=== PATIENT | female | born 1980 | race Caucasian/White ===

== ENCOUNTER 2016-09-30 14:46 | Emergency (ER) | payer SELFPAY ==
[~2016-09-30] VITALS: Ht 157.4 cm; Wt 54.4 kg
[~2016-09-30 14:46] MED LIST: BACTRIM DS 8001 TA1 PO; KEFLEX500 MG PO; MOTRIN800 MG PO; NAPROSYN500 MG PO; NKHM; ROBAXIN750 MG PO; VICODIN 5/500 505 MG PO
[2016-09-30] MEDS ORDERED: AMOXICILLIN500 M2 PO (15:56)
[2016-09-30] MEDS ORDERED: NAPROSYN500 MG PO (15:56)
[2016-09-30] MEDS ORDERED: PREDNISONE20 M1 PO (15:56)
== END 2016-09-30 16:04 | disposition home or self-care (01) ==
LOC: ED 14:46
DX: J20.9 Acute bronchitis, unspecified (principal); R09.1 Pleurisy; F17.200 Nicotine dependence, unspecified, uncomplicated

== ENCOUNTER 2018-11-21 20:12 | Emergency (ER) | payer OTHER ==
[~2018-11-21] VITALS: Ht 157.4 cm; Wt 63.5 kg
[~2018-11-21 20:12] MED LIST changes: +AMOXICILLIN500 M2 PO; +PREDNISONE20 M1 PO
[2018-11-21] MEDS ORDERED: IBUPROFEN600 MG PO (20:31)
[2018-11-29] MEDS ORDERED: AMOXICILLIN500 M3 PO (12:24)
[2018-11-29] MEDS ORDERED: CLEOCIN HCL150 MG PO (12:24)
== END 2018-11-21 20:45 | disposition home or self-care (01) ==
LOC: ED 20:12
DX: K02.9 Dental caries, unspecified (principal); Z79.2 Long term (current) use of antibiotics; Z79.899 Other long term (current) drug therapy

== ENCOUNTER 2019-01-04 02:32 | Emergency (ER) | payer OTHER ==
[~2019-01-04] VITALS: Ht 170.1 cm; Wt 54.4 kg
--- NOTE | ~2019-01-04 | EKG ---
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
[~2019-01-04 02:32] MED LIST changes: +AMOXICILLIN500 M3 PO; +CLEOCIN HCL150 MG PO; +IBUPROFEN600 MG PO
[2019-01-04 02:49] LABS: BASO % 0.2 % (0.0-1.0); EOS # 0.1 10*3/uL (0.0-0.4); EOS % 0.4 % (1.0-4.0); HEMATOCRIT 35.5 % (37.0-47.0); HEMOGLOBIN 12.9 g/dl (12.0-16.0); LYMPH # 2.3 10*3/uL (1.3-4.4); LYMPH % 17.2 % (27.0-41.0); MEAN CELL VOLUME 100.3 fl (81.0-99.0); MEAN CORPUSCULAR HGB 36.4 pg (27.0-31.0); MEAN CORPUSCULAR HGB CONC 36.3 g/dl (33.0-37.0); MEAN PLATELET VOLUME 10.9 fl (9.6-12.3); MONO # 0.8 10*3/uL (0.1-1.0); MONO % 5.9 % (3.0-9.0); NEUT # 10.1 10*3/uL (2.3-7.9); NEUT % 75.9 % (47.0-73.0); PLATELET COUNT AUTOMATED 182 10*3/uL (130-400); RED BLOOD COUNT 3.54 10*6/uL (4.10-5.10); RED CELL DISTRI WIDTH 12.7 % (0-14.5); WHITE BLOOD COUNT 13.3 10*3/uL (4.8-10.8)
[2019-01-04 03:06] LABS: ALBUMIN 3.8 gm/dl (3.1-4.5); ALKALINE PHOSPHATASE 69 U/L (45-117); BUN 9 mg/dl (7-24); CHLORIDE 98 mmol/L (98-107); CREATININE 0.75 mg/dL (0.55-1.02); POTASSIUM 2.7 mmol/L (3.5-5.1); SGOT/AST 34 IU/L (3-35); SGPT/ALT 47 U/L (12-78); SODIUM 133 mmol/L (136-145); TOTAL PROTEIN 7.8 gm/dL (6.4-8.2)
[2019-01-04 03:07] LABS: TROPONIN I < 0.015 ng/ml (<0.045)
[2019-01-04 03:38] LABS: URINE AMPHETAMINES < 1000 (1000ng/ml); URINE BARBITURATES < 200 (200ng/ml); URINE BENZODIAZEPINES < 200 (200ng/ml); URINE CANNABINOIDS (THC) < 50 (50ng/ml); URINE COCAINE < 300 (300ng/ml); URINE METHADONE < 300 (300ng/ml); URINE OPIATES < 300 (300ng/ml); URINE PHENCYCLIDINE < 25 (25ng/ml)
[2019-01-04] MEDS ORDERED: K-TAB20 MEQ PO (04:08)
== END 2019-01-04 04:23 | disposition left against medical advice (07) ==
LOC: ED 02:32
PROVIDERS: Emergency Medicine
DX: R07.9 Chest pain, unspecified (principal); R55 Syncope and collapse; E87.6 Hypokalemia

== ENCOUNTER → 2019-02-12 | Outpatient (CLI) | payer OTHER ==
[~2019-02-12] MED LIST changes: +ALDACTONE25 M1 PO; +FUROSEMIDE20 M1 PO; +K-TAB20 MEQ PO; +LISINOPRIL2.5 MG PO; +METOPROLOL SUCC50 M1 PO
[2019-02-12 12:17] LABS: BUN 22 mg/dl (7-24); CHLORIDE 107 mmol/L (98-107); CREATININE 1.19 mg/dL (0.55-1.02); POTASSIUM 4.4 mmol/L (3.5-5.1); SODIUM 136 mmol/L (136-145)
== END | disposition home or self-care (01) ==
LOC: LAB 11:20
PROVIDERS: Internal Medicine Cardiovascular Disease
DX: I42.8 Other cardiomyopathies (principal)

== ENCOUNTER 2019-03-07 23:41 | Inpatient (IN) | payer SELFPAY ==
[~2019-03-07] VITALS: Ht 157.4 cm; Wt 64.2 kg
--- NOTE | ~2019-03-07 | EKG ---
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
--- NOTE | ~2019-03-07 | EKG ---
[place], [place] ELECTROCARDIOGRAM REPORT NAME: TUSHAR ORLANDO UNIT #: [id number] ROOM: 508 DOCTOR: ANGELITO DRAFT REPORT BIRTHDATE: [birth year] [facility] Test Date: 2019-03-08 Test Time: 02:32:22 Pat Name: TUSHAR ORLANDO Department: Room: 508 Gender: F Resident Advisor: Kirstin Ramesh : 1980 Requested By: TAMIKA PÉREZ Order Number: [id number] Reading MD: Shima Rodney Measurements Intervals [place] Rate: 90 P: 75 MT: 185 QRS: 14 QRSD: 101 T: -15 QT: 484 QTc: 593 Interpretive Statements Sinus rhythm Low voltage, precordial leads Prolonged QT interval Baseline wander in lead(s) V1 Compared to ECG 01/04/2019 02:45:34 Low QRS voltage now present Prolonged QT interval now present T-wave abnormality no longer present Electronically Signed On 03-08-2019 12:53:19 PDT by Shima Rodney CM:EKGRPT:ELECTROCARDIOGRAM REPORT [id number] TAMIKA HOUSE DRAFT REPORT TAMIKA PÉREZ DO
--- NOTE | ~2019-03-07 | EKG ---
[place], [place] ELECTROCARDIOGRAM REPORT NAME: TUSHAR ORLANDO UNIT #: [id number] ROOM: 508 DOCTOR: ANGELITO DRAFT REPORT BIRTHDATE: [birth year] [facility] Test Date: 2019-03-07 Test Time: 23:46:13 Pat Name: TUSHAR ORLANDO Department: Room: 508 Gender: F Educational Technologist: : 1980 Requested By: TAMIKA PÉREZ Order Number: [id number] Reading MD: Shima Rodney Measurements Intervals [place] Rate: 97 P: 64 [place]: 178 QRS: 6 QRSD: 103 T: 14 QT: 389 QTc: 494 Interpretive Statements Sinus rhythm Probable left ventricular hypertrophy Borderline prolonged QT interval Compared to ECG 01/04/2019 02:45:34 T-wave abnormality no longer present Electronically Signed On 03-08-2019 12:53:05 PDT by Shima Rodney CM:EKGRPT:ELECTROCARDIOGRAM REPORT [id number] TAMIKA HOUSE DRAFT REPORT TAMIKA PÉREZ DO
--- NOTE | ~2019-03-07 | CON ---
[place], [place] REPORT OF CONSULTATION NAME: TUSHAR ORLANDO [facility] #: [id number] UNIT #: [id number] ROOM: 508 DOCTOR: DAVIDA VELASQUEZ MD BIRTHDATE: [birth year] DOS: 03/08/2019 CARDIOLOGY CONSULTATION REASON FOR VISIT: Chest pain. HISTORY OF PRESENT ILLNESS: The patient is a 38-year-old patient with history of ICD implant, mitral valve prolapse tenderness with "chest pain." The patient had a left-sided chest pain while she is riding in a [id number] with her fiance. This pain was midsternal, has a left chest, sharp, constant pain without any radiation, no associated nausea or diaphoresis. She was a presented to Emergency Room and she was given sublingual nitro with minimal relief. Apparently, the patient had a cardiac catheterization about a year ago at [facility] and was told it was normal. An ICD was implanted last 06/2018 at [facility]. She denies any shocks from ICD. No palpitation, dizziness, no syncope, no nausea or vomiting. No fever and chills. No cough or hemoptysis. No bladder or bowel symptoms. Cardiology was consulted because of her atypical chest pain. REVIEW OF SYSTEMS: Review of 10 systems negative except as mentioned above. PAST MEDICAL HISTORY: 1. History of ICD. 2. History of mitral valve prolapse. PAST SURGICAL HISTORY: 1. History of ICD implant on 06/2018. 2. History of neck surgery. SOCIAL HISTORY: The patient does smoke, but quit using drugs about 5 years ago. FAMILY HISTORY: Mother has coronary artery disease. Father unknown history. ALLERGIES: No known drug allergies. HOME MEDICATIONS: Reviewed. PHYSICAL EXAMINATION: VITAL SIGNS: Blood pressure 102/60, pulse 98, respiratory rate 18, weight 61.1 kilos. BMI 25.9. GENERAL: Alert, comfortable, in no acute distress. HEENT: Pupils are round and equal. No jaundice. Tongue was moist. Pharynx negative. NECK: Supple, no distended neck veins, no carotid bruit. CHEST: Symmetrical, nontender. ICD site is unremarkable. LUNGS: Clear to auscultation bilaterally. HEART: Regular rhythm, no S3, no palpable thrills. ABDOMEN: Bowel sounds normal, nontender. EXTREMITIES: Showed no edema. Distal pulses palpable. [place], [place] REPORT OF CONSULTATION NAME: TUSHAR ORLANDO UNIT #: [id number] ROOM: 508 DOCTOR: EVA RESENDIZ,DAVIDA BIRTHDATE: [birth year] SKIN: Warm and dry. No cyanosis, no clubbing. RECTAL: Deferred. GENITOURINARY: Deferred. NEUROLOGIC: The patient is alert with no focal neurologic deficit. DIAGNOSTIC TESTS: Her EKG and labs reviewed. CBC, chemistry unremarkable except potassium 3.1. Her cardiac troponins are negative. IMPRESSION: 1. Chest pain, atypical, external factor ruled out. The patient apparently had a cardiac catheterization last year at [facility], which was reportedly normal. Reports not available. 2. History of ICD implant for cardiomyopathy. 3. Mild hypokalemia. 4. Tobacco and alcohol use. RECOMMENDATIONS: 1. Continue current cardiac medications including metoprolol, lisinopril, Lasix and Aldactone. 2. Blood pressure and heart rates are stable. 3. Reset modification was discussed. 4. The patient can be discharged from the cardiac standpoint. 5. She will follow with her corporate analyst, Dr. Alberto and also her inhalation therapy aide. The above treatment was discussed with the patient and her fiance at bedside. All questions were answered. DAVIDA VELASQUEZ MD CM:CONSTR:REPORT OF CONSULTATION 32 03/09/19 0244 interface
[2019-03-07 23:41] VITALS: BP 107/66
[~2019-03-07 23:41] MED LIST changes: -ALDACTONE25 M1 PO; -FUROSEMIDE20 M1 PO; -LISINOPRIL2.5 MG PO; -METOPROLOL SUCC50 M1 PO
[2019-03-08] VITALS (8 sets, daily range): BP systolic 87–118; BP diastolic 48–62
--- NOTE | 2019-03-08 00:35 | NUR ---
MULTIPLE ATTEMPTS AT IV ACCESS UNSUCCESSFUL BY 3 RNS AND CHEMICAL ECONOMIST
[2019-03-08 01:00] LABS: ACT PARTIAL THROMBO TIME 29.2 SECONDS (20.0-32.1); INTERNATIONAL NORM RATIO 0.9 (2.0-3.5)
[2019-03-08 01:06] LABS: ALKALINE PHOSPHATASE 80 U/L (45-117); BASO % 0.4 % (0.0-1.0); BUN 10 mg/dl (7-24); CHLORIDE 104 mmol/L (98-107); CREATININE 0.79 mg/dL (0.55-1.02); EOS # 0.1 10*3/uL (0.0-0.4); HEMATOCRIT 39.9 % (37.0-47.0); HEMOGLOBIN 13.7 g/dl (12.0-16.0); LYMPH # 3.2 10*3/uL (1.3-4.4); LYMPH % 32.8 % (27.0-41.0); MEAN CELL VOLUME 98.3 fl (81.0-99.0); MEAN CORPUSCULAR HGB 33.7 pg (27.0-31.0); MEAN CORPUSCULAR HGB CONC 34.3 g/dl (33.0-37.0); MEAN PLATELET VOLUME 10.6 fl (9.6-12.3); MONO # 0.6 10*3/uL (0.1-1.0); NEUT # 5.7 10*3/uL (2.3-7.9); NEUT % 59.6 % (47.0-73.0); PLATELET COUNT AUTOMATED 202 10*3/uL (130-400); POTASSIUM 3.1 mmol/L (3.5-5.1); RED BLOOD COUNT 4.06 10*6/uL (4.10-5.10); SGOT/AST 33 IU/L (3-35); SGPT/ALT 50 U/L (12-78); SODIUM 137 mmol/L (136-145); WHITE BLOOD COUNT 9.6 10*3/uL (4.8-10.8)
[2019-03-08 01:07] LABS: TROPONIN I < 0.015 ng/ml (<0.045)
--- NOTE | 2019-03-08 01:15 | NUR ---
PATIENT UP TO BEDSIDE COMMODE X 1 ASSIST
[2019-03-08 01:36] LABS: URINE AMPHETAMINES < 1000 (1000ng/ml); URINE BARBITURATES < 200 (200ng/ml); URINE BENZODIAZEPINES < 200 (200ng/ml); URINE CANNABINOIDS (THC) < 50 (50ng/ml); URINE COCAINE < 300 (300ng/ml); URINE METHADONE < 300 (300ng/ml); URINE OPIATES < 300 (300ng/ml)
[2019-03-08 01:37] LABS: URINE PHENCYCLIDINE < 25 (25ng/ml)
--- NOTE | 2019-03-08 04:10 | NUR ---
A 38, admitted to , under the services of AMOL Dennison DO with a diagnosis of ALCOHOL INTOXICATION, CHES T PAIN. Chief complaint is CHEST PAIN. Patient arrived via bed from ER. Monitor applied. Initial assessment completed. Vital signs taken and recorded. AMOL DENNISON DO notified of admission to the unit. Orders received. See assessment for past medical history, medications and allergies. Patient and/or family oriented to unit. [facility] visitation policy reviewed. Clothing/patient valuable form completed. DARIANA GRACE
[2019-03-08] MEDS ORDERED: LISINOPRIL2.5 MG PO (04:54)
[2019-03-08] MEDS ORDERED: ALDACTONE25 M1 PO (04:55)
[2019-03-08] MEDS ORDERED: FUROSEMIDE20 M1 PO (04:55)
[2019-03-08] MEDS ORDERED: METOPROLOL SUCC50 M1 PO (05:04)
--- NOTE | 2019-03-08 06:50 | NUR ---
DR. FRANCIS PAGED AT THIS TIME
--- NOTE | 2019-03-08 08:04 | NUR ---
REP FROM [facility] RETURNED CALL. PATIENT HAS ICD. UNABLE TO BE INTEROGATED. WILL FOLLOW UP WITH .
--- NOTE | 2019-03-08 08:09 | NUR ---
SPOKE WITH DR MEDINA ABOUT RESTARTING PT'S HOME MEDICATIONS AND [employer] NOT BEING ABLE TO INTEROGTE PACER BECAUSE SHE HAS AN ICD.
--- NOTE | 2019-03-08 12:24 | NUR ---
DR MEDINA CLLED FOR BP 87/48. PATIENT ASYMPTOMATIC AT THIS TIME. AWAITING ORDERS.
--- NOTE | 2019-03-08 14:45 | NUR ---
DR BEAN IN TO SEE PATIENT. OK TO BE DISCHARGED FROM HIS STANDPOINT.
--- NOTE | 2019-03-08 15:33 | NUR ---
Discharge instructions reviewed with patient/family. Patient receptive and verbalizes understanding. Follow-up care arranged. Written instructions given to patient/family. PATIENT DISCHARGED HOME WITH BOYFRIEND. RAY SHARIF
== END 2019-03-08 15:35 | disposition home or self-care (01) | DRG 206 ==
LOC: ED 23:41 → EDHOLD 03-08 02:37 → 5E 03-08 02:57
PROVIDERS: Emergency Medicine; Nurse Practitioner; ADMIT Internal Medicine
DX: M94.0 Chondrocostal junction syndrome [Tietze] (principal); I42.9 Cardiomyopathy, unspecified; K21.9 Gastro-esophageal reflux disease without esophagitis; F41.9 Anxiety disorder, unspecified; F10.129 Alcohol abuse with intoxication, unspecified; E87.6 Hypokalemia; F17.210 Nicotine dependence, cigarettes, uncomplicated; E83.51 Hypocalcemia; I34.1 Nonrheumatic mitral (valve) prolapse; Z95.810 Presence of automatic (implantable) cardiac defibrillator; Z71.6 Tobacco abuse counseling; Z82.49 Family history of ischemic heart disease and other diseases of the circulatory system

== ENCOUNTER → 2022-01-01 | Outpatient (CLI) | payer OTHER ==
[~2022-01-01] MED LIST changes: +ALDACTONE25 M1 PO; +FUROSEMIDE20 M1 PO; +LISINOPRIL2.5 MG PO; +METOPROLOL SUCC50 M1 PO
[2022-01-01 09:44] LABS: BUN 12 mg/dl (7-24); CHLORIDE 103 mmol/L (98-107); CREATININE 0.89 mg/dL (0.55-1.02); POTASSIUM 3.5 mmol/L (3.5-5.1); SODIUM 136 mmol/L (136-145)
== END | disposition home or self-care (01) ==
LOC: LAB 08:55
PROVIDERS: ATTEND Internal Medicine Cardiovascular Disease
DX: I42.8 Other cardiomyopathies (principal)

== ENCOUNTER 2022-03-22 23:53 | Observation (INO) | payer OTHER ==
[~2022-03-22] VITALS: Ht 160 cm; Wt 72.3 kg
[2022-03-23] VITALS (11 sets, daily range): BP systolic 93–127; BP diastolic 46–69
[2022-03-23 00:33] LABS: BILIRUBIN Negative (Negative); BLOOD Negative (Negative); CLARITY Turbid (Clear); COLOR Yellow (Yellow); GLUCOSE Negative (Negative); KETONE Trace (Negative); LEUKO ESTERASE 1+ (Negative); NITRITE Negative (Negative); SPECIFIC GRAVITY >= 1.030 (1.001-1.030)
[2022-03-23 00:45] LABS: ALKALINE PHOSPHATASE 77 U/L (45-117); BASO % 0.2 % (0.0-1.0); BUN 14 mg/dl (7-24); CHLORIDE 103 mmol/L (98-107); CREATININE 0.91 mg/dL (0.55-1.02); EOS % 0.2 % (1.0-4.0); HEMATOCRIT 42.7 % (37.0-47.0); LIPASE 104 U/L (73-393); LYMPH % 15.7 % (27.0-41.0); MEAN CELL VOLUME 97.3 fl (81.0-99.0); MEAN CORPUSCULAR HGB 33.7 pg (27.0-31.0); MEAN CORPUSCULAR HGB CONC 34.7 g/dl (33.0-37.0); MEAN PLATELET VOLUME 10.9 fl (9.6-12.3); MONO # 0.7 10*3/uL (0.1-1.0); MONO % 5.7 % (3.0-9.0); NEUT # 9.8 10*3/uL (2.3-7.9); NEUT % 77.8 % (47.0-73.0); PLATELET COUNT AUTOMATED 246 10*3/uL (130-400); POTASSIUM 4.2 mmol/L (3.5-5.1); RED BLOOD COUNT 4.39 10*6/uL (4.10-5.10); RED CELL DISTRI WIDTH 13.3 % (0-14.5); SGOT/AST 46 IU/L (3-35); SGPT/ALT 88 U/L (12-78); SODIUM 137 mmol/L (136-145); WHITE BLOOD COUNT 12.6 10*3/uL (4.8-10.8)
[2022-03-23 01:11] LABS: BACTERIA TRACE; EPITHELIAL CELLS TNTC
[2022-03-23] MEDS ORDERED: ENTRESTO 24 MG1 EACH PO (14:57)
== END 2022-03-23 19:34 | disposition short-term general hospital (02) ==
LOC: ED 23:53 → EDHOLD 03-23 08:05 → 5E 03-23 08:05
PROVIDERS: Emergency Medicine; ADMIT Family Medicine; ATTEND Family Medicine
DX: N39.0 Urinary tract infection, site not specified (principal); I42.9 Cardiomyopathy, unspecified; R11.2 Nausea with vomiting, unspecified; F17.210 Nicotine dependence, cigarettes, uncomplicated; Z79.899 Other long term (current) drug therapy; Z98.890 Other specified postprocedural states; Z95.810 Presence of automatic (implantable) cardiac defibrillator

== ENCOUNTER 2022-06-02 19:56 | Emergency (ER) | payer OTHER ==
[~2022-06-02] VITALS: Ht 160 cm; Wt 65.8 kg
[~2022-06-02 19:56] MED LIST changes: +ENTRESTO 24 MG1 EACH PO
== END 2022-06-02 23:00 | disposition home or self-care (01) ==
LOC: ED 19:56
DX: S63.502A Unspecified sprain of left wrist, initial encounter (principal); Z79.899 Other long term (current) drug therapy; F17.200 Nicotine dependence, unspecified, uncomplicated; V86.59XA Driver of other special all-terrain or other off-road motor vehicle injured in nontraffic accident, initial encounter; Y93.89 Activity, other specified; Y92.89 Other specified places as the place of occurrence of the external cause; Y99.8 Other external cause status

== ENCOUNTER → 2025-04-28 | Outpatient (CLI) | payer OTHER ==
[2025-04-28 15:11] LABS: BILIRUBIN Negative (Negative); BLOOD Negative (Negative); CLARITY Cloudy (Clear); COLOR Yellow (Yellow); KETONE Trace (Negative); LEUKO ESTERASE Trace (Negative); NITRITE Negative (Negative); PH 6.0 (4.5-8.0); SPECIFIC GRAVITY 1.015 (1.001-1.030); UROBILINOGEN 1.0 E.U./dl (0.0-1.0)
[2025-04-28 15:19] LABS: BACTERIA 1+; EPITHELIAL CELLS 31-40; MUCOUS 2+; RBC 0-2 rbc/hpf (0-2); YEAST 1+
[2025-04-28 15:35] LABS: BUN 7 mg/dl (9-23); GAMMA GLUTAMYL TRANSFERASE 43 U/L (0-38); LDL CHOLESTEROL 93 mg/dL (9-159); SGPT/ALT 23 U/L (5-49); T3 UPTAKE 25.6 % (22.4-36.7); THYROXINE (T4) TOTAL 11.9 ug/dl (4.5-10.9)
[2025-04-28 15:45] LABS: MEAN CELL VOLUME 96.7 fl (81.0-99.0); MEAN CORPUSCULAR HGB 32.8 pg (27.0-31.0); MEAN PLATELET VOLUME 11.3 fl (9.6-12.3); NUCLEATED RED BLOOD CELL 0.0 % (0.0-0.0); NUCLEATED RED BLOOD CELL 0.0 10*3/uL (0.0-0.0); PLATELET COUNT AUTOMATED 199 10*3/uL (130-400); RED CELL DISTRI WIDTH 13.1 % (0-14.5); RETICULOCYTE % 1.27 % (0.50-2.50)
[2025-04-28 15:57] LABS: VITAMIN D, 25-HYDROXY 55.5 ng/mL (30-100)
[2025-04-28 16:10] LABS: PLATELET SUFFICIENCY NORMAL (NORMAL)
[2025-04-29 13:07] LABS: ANTI-DSDNA ANTIBODIES 1 IU/mL (0-9)
[2025-04-29 17:07] LABS: A/G RATIO 0.9 (0.7-1.7); BETA GLOBULIN 1.1 g/dL (0.7-1.3); GLOBULIN, TOTAL 3.8 g/dL (2.2-3.9)
== END | disposition home or self-care (01) ==
LOC: LAB 14:31
PROVIDERS: ATTEND Family Medicine
DX: R06.02 Shortness of breath (principal); E78.5 Hyperlipidemia, unspecified; E55.9 Vitamin D deficiency, unspecified; R53.83 Other fatigue; R79.89 Other specified abnormal findings of blood chemistry

== ENCOUNTER → 2025-05-19 | Outpatient (CLI) | payer OTHER | END | disposition home or self-care (01) | LOC: US 08:17 | PROVIDERS: ATTEND Family Medicine | DX: N83.02 Follicular cyst of left ovary (principal); N28.1 Cyst of kidney, acquired; R10.2 Pelvic and perineal pain; R10.84 Generalized abdominal pain; E04.9 Nontoxic goiter, unspecified; Z90.89 Acquired absence of other organs ==

== ENCOUNTER → 2025-06-22 | Outpatient (CLI) | payer OTHER ==
[2025-06-22 15:43] LABS: BUN 9 mg/dl (9-23); SGPT/ALT 29 U/L (5-49)
[2025-06-22 16:15] LABS: BASO # 0.0 10*3/uL (0.0-0.1); BASO % 0.2 % (0.0-1.0); EOS # 0.1 10*3/uL (0.0-0.4); EOS % 0.8 % (1.0-4.0); MEAN CELL VOLUME 97.2 fl (81.0-99.0); MEAN CORPUSCULAR HGB 33.0 pg (27.0-31.0); MEAN PLATELET VOLUME 11.4 fl (9.6-12.3); MONO # 0.5 10*3/uL (0.1-1.0); MONO % 6.1 % (3.0-9.0); NEUT # 6.3 10*3/uL (2.3-7.9); NEUT % 70.9 % (47.0-73.0); NUCLEATED RED BLOOD CELL 0.0 % (0.0-0.0); NUCLEATED RED BLOOD CELL 0.0 10*3/uL (0.0-0.0); PLATELET COUNT AUTOMATED 207 10*3/uL (130-400); RED CELL DISTRI WIDTH 13.2 % (0-14.5)
== END | disposition home or self-care (01) ==
LOC: LAB 14:57
PROVIDERS: ATTEND Internal Medicine Cardiovascular Disease
DX: I42.9 Cardiomyopathy, unspecified (principal); D68.59 Other primary thrombophilia